=== PATIENT | male | born 1955 | race Caucasian/White ===

== ENCOUNTER → 2016-12-14 | Outpatient (CLI) | payer OTHER ==
[2016-12-14 09:43] LABS: Basophils # (A) 0.2 k/uL (0-0.2); Basophils % (A) 2 %; CH 31.4; CHCM 32.1; Eosinophils # (A) 0.2 k/uL (0-0.7); Eosinophils % (A) 2 %; HCT 45.9 % (39.0-53.0); HDW 2.27; HGB 14.1 gm/dL (13.0-17.5); Luc # (Auto) 0.11; Luc % (Auto) 1; Lymphocytes # (A) 2.1 k/uL (1.0-4.8); Lymphocytes % (A) 25 %; MCH 30.1 pg (25.0-35.0); MCHC 30.6 g/dL (31.0-37.0); MCV 98.3 fL (80.0-100.0); Mean Platelet Volume 8.5; Monocytes # (A) 0.5 k/uL (0-1.0); Monocytes % (A) 6 %; Neutrophils # (A) 5.4 k/uL (1.3-7.7); Neutrophils % (A) 64 %; RBC 4.67 m/uL (4.30-5.90); RDW 13.1 % (11.5-15.5); WBC 8.4 k/uL (3.8-10.6); WBC (Perox) 8.27
[2016-12-14 09:53] LABS: Bilirubin, Delta 0.3 mg/dL (0.0-0.2); Total Bilirubin 0.6 mg/dL (0.2-1.3); Total Protein 7.7 g/dL (6.3-8.2)
[2016-12-15 16:54] LABS: Hepatits C Virus RNA, Quant <12 IU/mL (<12); LOG HCV IU/mL <1.08 (<1.08)
== END | disposition home or self-care (01) ==
LOC: LABWHC1 09:09
PROVIDERS: ATTEND Physician Assistant
DX: B18.2 Chronic viral hepatitis C (principal)
CPT/HCPCS: 36415; 80076; 85025; 87522

== ENCOUNTER → 2017-01-02 | Outpatient (CLI) | payer OTHER ==
--- NOTE | 2017-01-02 08:45 | US ---
EXAMINATION TYPE: US liver DATE OF EXAM: 01/02/2017 8:30 AM COMPARISON: NONE CLINICAL HISTORY: B18.2 Viral HEP C. EXAM MEASUREMENTS: Liver Length: 15.3 cm Gallbladder Wall: 0.2 cm CBD: 0.4 cm Right Kidney: 10.0 x 4.6 x 5.1 cm Patient had extensive midline bowel gas Pancreas: Obscured by bowel gas Liver: somewhat heterogenousl Gallbladder: wnl Evidence for sonographic Seals's sign: CBD: wnl Right Kidney: wnl IMPRESSION: 1. Hepatic steatosis versus hepatocellular.
== END | disposition home or self-care (01) ==
LOC: RADUSWWP 08:01
PROVIDERS: ATTEND Internal Medicine Gastroenterology
DX: B18.2 Chronic viral hepatitis C (principal)
CPT/HCPCS: 76705

== ENCOUNTER → 2017-03-31 | Outpatient (CLI) | payer OTHER ==
[2017-03-31 09:31] LABS: Basophils % (A) 0 %; CH 30.9; CHCM 31.8; Eosinophils # (A) 0.2 k/uL (0-0.7); Eosinophils % (A) 3 %; HDW 2.16; Luc % (Auto) 1; Lymphocytes # (A) 2.3 k/uL (1.0-4.8); Lymphocytes % (A) 31 %; MCH 31.8 pg (25.0-35.0); MCHC 32.6 g/dL (31.0-37.0); MCV 97.8 fL (80.0-100.0); Mean Platelet Volume 8.7; Monocytes # (A) 0.4 k/uL (0-1.0); Monocytes % (A) 5 %; Neutrophils # (A) 4.5 k/uL (1.3-7.7); Neutrophils % (A) 60 %; WBC 7.5 k/uL (3.8-10.6); WBC (Perox) 7.52
[2017-03-31 09:48] LABS: Bilirubin, Delta 0.3 mg/dL (0.0-0.2); Total Bilirubin 0.5 mg/dL (0.2-1.3); Total Protein 7.4 g/dL (6.3-8.2)
[2017-04-03 08:27] LABS: Hepatits C Virus RNA, Quant <12 IU/mL (<12); LOG HCV IU/mL <1.08 (<1.08)
== END | disposition home or self-care (01) ==
LOC: LABWHC1 09:05
PROVIDERS: ATTEND Physician Assistant
DX: B18.2 Chronic viral hepatitis C (principal)
CPT/HCPCS: 36415; 80076; 82105; 85025; 87522

== ENCOUNTER → 2017-11-28 | Outpatient (CLI) | payer OTHER ==
--- NOTE | 2017-11-28 13:12 | US ---
EXAMINATION TYPE: US kidneys/renal and bladder DATE OF EXAM: 11/28/2017 COMPARISON: CT and Abdomen limited CLINICAL HISTORY: Dysuria R30.0. Recent UTI, bilateral renal stones EXAM MEASUREMENTS: Right Kidney: 10.2 x 6.0 x 4.2 cm Left Kidney: 9.8 x 7.9 x 4.5 cm Post Void Residual Volume: 4.4 mL Right Kidney: no hydronephrosis; mid lateral shadowing, hyperechoic focus = 0.5 x 0.5 x 0.3cm Left Kidney: no hydronephrosis, mid pole shadowing, hyperechoic focus = 0.5 x 0.3 x 0.1cm Bladder: wnl Bilateral Jets seen: Yes Normal Post Void Residual: Yes Urinary bladder is anechoic and unremarkable. IMPRESSION: 1. Solitary bilateral renal calculi both measuring up to 5 mm. These are nonobstructing with no evide nce of hydronephrosis. 2. No evidence of abnormal post void residual within the urinary bladder.
== END | disposition home or self-care (01) ==
LOC: RADUSWWP 12:13
PROVIDERS: ATTEND Internal Medicine
DX: N20.0 Calculus of kidney (principal)
CPT/HCPCS: 76770

== ENCOUNTER → 2018-03-26 | Outpatient (CLI) | payer OTHER ==
[2018-03-26 08:58] LABS: Blood Urea Nitrogen 15 mg/dL (9-20)
--- NOTE | 2018-03-26 09:36 | CT ---
EXAMINATION TYPE: CT abdomen w con DATE OF EXAM: 03/26/2018 COMPARISON: NONE HISTORY: RUQ pain CT DLP: 1085 mGycm Automated exposure control for dose reduction was used. TECHNIQUE: Helical acquisition of images was performed from the lung bases through the top of iliac crest to include entire abdomen. CONTRAST: Performed with Oral Contrast and with IV Contrast, patient injected with 100 mL of Isovue 300. FINDINGS: LUNG BASES: HEART: Enlarged there subsegmental atelectasis at the lung bases. LIVER/GB: No evidence of hepatic mass. Gallbladder is mildly prominent in size but stable and there i s mild central biliary dilation PANCREAS: No significant abnormality is seen. SPLEEN: No significant abnormality is seen. ADRENALS: Tiny right adrenal nodule measuring less than a centimeter is too small to characterize and stable. KIDNEYS: nonobstructing 3 mm right renal calculus and 2 mm left renal calculus. There is a 5 mm hypodensity left kidney too small to characterize. BOWEL: Nonspecific bowel gas pattern with extensive retained fecal debris. LYMPH NODES: Shotty adenopathy in the left periaortic region. This appears retrospectively stable. OSSEOUS STRUCTURES: Hypertrophic and degenerative change spine. FREE AIR: No free air is visualized. OTHER: Atherosclerotic change aorta. IMPRESSION: 1. Mild central biliary dilation and mild prominence the gallbladder which appears to be stable. Extr ahepatic common bile duct measures the upper limits of normal. 2. Stable cardiomegaly 3. Stable bilateral nonobstructing renal calculi. 4. Stable hypodense lesion left kidney too small to characterize.
== END | disposition home or self-care (01) ==
LOC: RADCTMAIN 08:29
PROVIDERS: ATTEND Internal Medicine
DX: N20.0 Calculus of kidney (principal); N28.9 Disorder of kidney and ureter, unspecified; K83.8 Other specified diseases of biliary tract
CPT/HCPCS: 82565; 84520; 74160; 36415; Q9967

== ENCOUNTER 2020-10-02 23:59 | Observation (INO) | payer OTHER ==
[2020-10-03 00:34] LABS: Amorphous Sediment,Urine Few /hpf; Appearance,Urine Turbid (Clear); Bilirubin,Urine Negative (Negative); Blood,Urine Negative (Negative); Color,Urine Yellow; Glucose,Urine (UA) Negative (Negative); Ketones,Urine 1+ (Negative); Leukocyte Esterase,Urine Negative (Negative); Nitrite,Urine Negative (Negative); Protein,Urine Trace (Negative); RBC,Urine 8 /hpf (0-5); Specific Gravity,Urine 1.025 (1.001-1.035); Urobilinogen,Urine <2.0 mg/dL (<2.0)
[2020-10-03 00:58] LABS: Basophils # (A) 0.1 k/uL (0-0.2); Basophils % (A) 1 %; Eosinophils # (A) 0.1 k/uL (0-0.7); Eosinophils % (A) 1 %; HCT 42.4 % (39.0-53.0); HGB 13.9 gm/dL (13.0-17.5); Lymphocytes # (A) 1.3 k/uL (1.0-4.8); Lymphocytes % (A) 14 %; MCH 31.4 pg (25.0-35.0); MCHC 32.7 g/dL (31.0-37.0); MCV 96.1 fL (80.0-100.0); Mean Platelet Volume 8.7; Monocytes # (A) 0.5 k/uL (0-1.0); Monocytes % (A) 5 %; Neutrophils # (A) 7.7 k/uL (1.3-7.7); Neutrophils % (A) 79 %; Platelet Count 183 k/uL (150-450); RBC 4.41 m/uL (4.30-5.90); RDW 12.7 % (11.5-15.5); WBC 9.9 k/uL (3.8-10.6)
[2020-10-03 01:05] LABS: African American GFR (CKD) >90 (>60 ml/min/1.73 sqM); Albumin 4.5 g/dL (3.5-5.0); Amylase 78 U/L (30-110); Anion Gap 6 mmol/L; Carbon Dioxide 27 mmol/L (22-30); Chloride 107 mmol/L (98-107); Glucose 90 mg/dL (74-99); Lipase 150 U/L (23-300); Non-African American GFR(CKD) >90 (>60 ml/min/1.73 sqM); Sodium 140 mmol/L (137-145); Total Bilirubin 1.2 mg/dL (0.2-1.3); Total Protein 7.5 g/dL (6.3-8.2)
[2020-10-03 01:17] LABS: ALT 25 U/L (4-49); AST 56 U/L (17-59); Alkaline Phosphatase 41 U/L (38-126); Blood Urea Nitrogen 23 mg/dL (9-20); Potassium 4.7 mmol/L (3.5-5.1)
[2020-10-03] MEDS ORDERED: HYDROmorphone 1 MG/ML 1 ML SYRINGE IVP STA ×2 (01:19→01:49)
--- NOTE | 2020-10-03 01:42 | US ---
EXAM: US Scrotum CLINICAL HISTORY: Left scrotal pain. TECHNIQUE: Real-time ultrasound of the scrotum with color Doppler and image documentation. COMPARISON: No previous studies. FINDINGS: Right testicle: Right testicle measures 3.4 x 2.1 x 2.8 cm. Diffuse heterogeneity of the testicular echogenicity of uncertain etiology. Flow is demonstrated to both testicles. Left testicle: The left testicle appears small in size relative to the right testicle. Diminished flow to the left testicle is noted which requires clinical correlation. Epididymides: Right epididymis measures 0.6 x 1.3 x 1.2 cm. Left epididymis measures 0.9 x 1 x 1.8 cm. Ovoid echogenic structure cephalad to the right epididymis, possibly presenting a small inguinal hernia. The finding is equivocal. Scrotum: Small bilateral simple hydroceles are noted. Other findings: Left measures 2.3 x 1.5 x 1.9 cm. IMPRESSION: 1. Diffuse heterogeneity of both testicles. 2. Left testicle is small for in size relative the right testicle. 3. Diminished flow to the left testicle is noted relative to the right testicle. 4. Clinical correlation is highly advised to 5. Possible small right inguinal hernia. 6. Bilateral hydroceles. <MYCVCSECTION> Communications: 10/03/20 02:01 Call Doctor Regarding Above results, called Dr. Campbell on 10/03 02:01 (-05:00)
--- NOTE | 2020-10-03 01:44 | ED ---
General Adult HPI - General Chief complaint: Urogenital Stated complaint: L testicle pain Time Seen by Provider: 10/03/20 00:08 Source: patient Mode of arrival: ambulatory - History of Present Illness Initial comments: this patient is a 65-year-old man who presents to be evaluated for left testicular pain. The patient states that he had gone for a walk earlier and after he came back he was seatedand noticed to the left testicular pain. He states it initially was reminding him of pain he had associated with varicocele [place] The patient states that daily intensified to call EMS due to the pain. The patient did take his me thadone, but did not have much relief. The addition, patient states she has been having some left hip pains as well as the testicular pains intermittently, for the past number days up to a week. Onset/Timin -: days(s) Location: genitals, left, lower extremity Radiation: non-radiation Quality: aching, sharp Consistency: constant Improves with: none Worsens with: none Associated Symptoms: nausea/vomiting Treatments Prior to Arrival: other (methadone) - Related Data Home Medications Medication Instructions Recorded Confirmed Methadone [Dolophine] 30 mg PO DAILY 10/03/20 10/03/20 Allergies Allergy/AdvReac Type Severity Reaction Status Date / Time adhesive Allergy Rash/Hives Verified 10/03/20 08:08 Review of Systems ROS Statement: Those systems with pertinent positive or pertinent negative responses have been documented in the HPI. ROS Other: All systems not noted in ROS Statement are negative. Past Medical History Past Medical History: COPD, GERD/Reflux, Liver Disease, Musculoskeletal Disorder, Osteoarthritis (OA) Additional Past Medical History / Comment(s): ARTHRITIS LT HIP; HERNIATED DISC IN LOWER BACK. HEPATITIS C 1994, WAS TREATED; HEPATITIS B 1969. HX PAIN RX -ON & OFF, METHADONE FOR [address] SCAN SHOWED ENLARGED HEART. SPIT UP BLOOD X1, BLOOD IN STOOL X1. History of Any Multi-Drug Resistant Organisms: None Reported Past Surgical History: Orthopedic Surgery Additional Past Surgical History / Comment(s): ORIF FX LEFT HIP -HAS STEEL PLATE & PINS. LT EYE [id number] [place]. LT TESTICULAR/VARICOSCELE SURGERY 1981. COLONOSCOPY. Past Anesthesia/Blood Transfusion Reactions: Motion Sickness Additional Past Anesthesia/Blood Transfusion Reaction / Comment(s): CAN'T DO A MUSEMENT RIDES THAT SWIRL Past Psychological History: ADD/ADHD Smoking Status: Former smoker Past Alcohol Use History: None Reported Past Drug Use History: Marijuana, Opiates, Prescription Drug Abuse - Past Family History Mother Family Medical History: Cancer Additional Family Medical History / Comment(s): STOMACH CA- @ AGE 46 Father Family Medical History: Myocardial Infarction ([place]) Additional Family Medical History / Comment(s): OF OR @ AGE 73 Course Vital Signs 10/03/20 10/03/20 10/03/20 00:02 03:22 04:35 Temperature 98.3 F 98.1 F Pulse Rate 88 90 89 Respiratory 18 18 18 Rate Blood Pressure 138/106 138/91 137/87 O2 Sat by Pulse 99 96 98 Oximetry Medical Decision Making - Lab Data Result diagrams: 10/03/20 00:50 10/03/20 00:50 Lab Results 10/03/20 10/03/20 10/03/20 Range/Units 00:16 00:50 00:50 WBC 9.9 (3.8-10.6) k/uL RBC 4.41 (4.30-5.90) m/uL Hgb 13.9 (13.0-17.5) gm/dL Hct 42.4 (39.0-53.0) % MCV 96.1 (80.0-100.0) fL MCH 31.4 (25.0-35.0) pg MCHC 32.7 (31.0-37.0) g/dL RDW 12.7 (11.5-15.5) % Plt Count 183 (150-450) k/uL Neutrophils % 79 % Lymphocytes % 14 % Monocytes % 5 % Eosinophils % 1 % Basophils % 1 % Neutrophils # 7.7 (1.3-7.7) k/uL Lymphocytes # 1.3 (1.0-4.8) k/uL Monocytes # 0.5 (0-1.0) k/uL Eosinophils # 0.1 (0-0.7) k/uL Basophils # 0.1 (0-0.2) k/uL Sodium 140 (137-145) mmol/L Potassium 4.7 (3.5-5.1) mmol/L Chloride 107 (98-107) mmol/L Carbon Dioxide 27 (22-30) mmol/L Anion Gap 6 mmol/L BUN 23 H (9-20) mg/dL Creatinine 0.81 (0.66-1.25) mg/dL Est GFR (CKD-EPI)AfAm >90 (>60 ml/min/1.73 sqM) Est GFR (CKD-EPI)NonAf >90 (>60 ml/min/1.73 sqM) Glucose 90 (74-99) mg/dL Calcium 9.0 (8.4-10.2) mg/dL Total Bilirubin 1.2 (0.2-1.3) mg/dL AST 56 (17-59) U/L ALT 25 (4-49) U/L Alkaline Phosphatase 41 (38-126) U/L Total Protein 7.5 (6.3-8.2) g/dL Albumin 4.5 (3.5-5.0) g/dL Amylase 78 (30-110) U/L Lipase 150 (23-300) U/L Urine Color Yellow Urine Appearance Turbid (Clear) Urine pH 8.0 (5.0-8.0) Ur Specific [place] 1.025 (1.001-1.035) Urine Protein Trace H (Negative) Urine Glucose (UA) Negative (Negative) Urine Ketones 1+ H (Negative) Urine Blood Negative (Negative) Urine Nitrite Negative (Negative) Urine Bilirubin Negative (Negative) Urine Urobilinogen <2.0 (<2.0) mg/dL Ur Leukocyte Esterase Negative (Negative) Urine RBC 8 H (0-5) /hpf Amorphous Sediment Few H (None) /hpf Disposition Clinical Impression: Left testicular pain, Left hip pain, Intractable pain Disposition: ADMITTED IP TO THIS HOSP Condition: Fair
--- NOTE | 2020-10-03 01:58 | CT ---
EXAM: CT Abdomen and Pelvis Without Intravenous Contrast CLINICAL HISTORY: ITS.REASON CT Reason: Left groin/hip pain TECHNIQUE: Axial computed tomography images of the abdomen and pelvis without intravenous contrast. CTDI is 9.27 mGy and DLP is 550.9 mGy-cm. This CT exam was performed using one or more of the following dose reduction techniques: automated exposure control, adjustment of the mA and/or kV according to patient size, and/or use of iterative reconstruction technique. COMPARISON: 03/26/2018. FINDINGS: Lung bases: Mild COPD. Minimal subsegmental atelectasis posteriorly at the lung bases. Pleural space: No pleural effusions. Heart: Heart is top normal in size. ABDOMEN: Liver: Diffuse fatty infiltration of the liver is noted. The liver and the spleen are normal in contour. Gallbladder and bile ducts: The gallbladder is in a contracted state. Pancreas: The head, body, tail of the pancreas, and the gallbladder are unremarkable. No ductal dilation. Spleen: See above. Adrenals: The right adrenal gland is unremarkable The left adrenal gland is unremarkable. Kidneys and ureters: 0.4 cm nonobstructing calculus mid pole region of the right kidney. 0.2 cm nonobstructing calculus lower pole region of the right kidney. 0.3 cm nonobstructing calculus mid to lower pole region of the left kidney. Stomach and bowel: Moderate quantity of stool throughout the colon. No evidence of bowel obstruction. The appendix is seen on coronal image 53 and is unremarkable. Diverticulosis without diverticulitis. PELVIS: Appendix: See above. Bladder: The bladder is underdistended. No stones. Reproductive: Prostate gland is unremarkable. The left testicle appears to be within the left inguinal canal and is not completely distended. ABDOMEN and PELVIS: Intraperitoneal space: Unremarkable. No free air. No significant fluid collection. Bones/joints: Orthopedic hardware is noted in place within the proximal left femur. Moderate to severe degenerative disc disease of the thoracolumbar spine. Grade 1 anterolisthesis of L4 upon L5 vertebral body. Multilevel Schmorl's nodes. The sacrum and coccyx are unremarkable. No acute fracture. No dislocation. Soft tissues: Ischiorectal fat is clean. Vasculature: Unremarkable. No abdominal aortic aneurysm. Lymph nodes: No retroperitoneal lymphadenopathy. No pelvic or inguinal lymphadenopathy. IMPRESSION: 1. Diffuse fatty infiltration of the liver is noted. 2. Gallbladder is unremarkable. 3. Nonobstructing bilateral renal calculi. 4. Moderate quantity of stool throughout the colon without bowel obstruction. 5. The appendix is unremarkable. 6. The left testicle is within left inguinal canal and is undescended completely. 7. Diverticulosis without diverticulitis. <MYCVCSECTION> Communications: 10/03/20 02:01 Call Doctor Regarding Above results, called Dr. Campbell on 10/03 02:01 (-05:00)
[2020-10-03] MEDS ORDERED: LIDOCAINE 2% INJ 20 MG/ML (20 ML MDV) SQ STA (02:53)
[2020-10-03] MEDS ORDERED: BUPIVACAINE (PF) 0.5% 30 ML VIAL SQ STA (02:54)
[2020-10-03] MEDS ORDERED: DIAZEPAM 5 MG/ML 2 ML INJ IVP STA (03:31)
[2020-10-03] MEDS ORDERED: methylPREDNISolone SOD SUCCI 125 MG/2 ML VIAL IV STA (03:32)
[2020-10-03] MEDS ORDERED: HYDROcodone/APAP 5-325MG 1 EACH TAB PO PRN (03:34)
[2020-10-03] MEDS ORDERED: DOCUSATE 100 MG CAP PO PRN (03:34)
[2020-10-03] MEDS ORDERED: ONDANSETRON 4 MG/2 ML VIAL IVP PRN (03:34)
[2020-10-03] MEDS ORDERED: ACETAMINOPHEN TAB 325 MG TAB PO PRN (03:34)
[2020-10-03] MEDS ORDERED: NALOXONE 0.4 MG/ML 1 ML VIAL IV PRN (03:34)
--- NOTE | 2020-10-03 03:43 | P.GSCN ---
History of Present Illness Consult date: 10/03/20 Reason for Consult: Left testicular pain History of present illness: The patient is a 65-year-old male with a history of left testicular and left hip and thigh pain which dates back over one week. He says that he took a walk yesterday afternoon following which he developed increased pain in the left testicle and left leg. The pain was not associated with nausea or vomiting. He says the pain in his leg is in the anterior thigh and inner thigh as well as the lateral thigh. He denies any muscle weakness. He denies any recent injury to the hip. He did have a right hip replacement approximately 30 years ago. The patient was evaluated in the emergency room and the source of his pain was not clear. A scrotal ultrasound was obtained which appeared to show diminished blood flow to the left testicle. There was no left testicular enlargement and in fact the left testicle was slightly smaller than the right. Patient has a history of left varicocele repair at the age of 26 and says that the left testicle has remained slightly smaller ever since then. He has no history of epididymitis. I was asked to see the patient due to concern in regard to possible spermatic cord torsion. Review of Systems - Constitutional Denies chills, Denies fever - Cardiovascular Denies shortness of breath - Respiratory Denies pain on inspiration - Genitourinary Reports as per HPI, Denies flank pain, Denies hematuria, Denies urinary frequency Past Medical History Past Medical History: COPD, GERD/Reflux, Liver Disease, Musculoskeletal Disorder, Osteoarthritis (OA) Additional Past Medical History / Comment(s): ARTHRITIS LT HIP; HERNIATED DISC IN LOWER BACK. HEPATITIS C 1994, WAS TREATED; HEPATITIS B 1969. HX PAIN RX -ON & OFF, METHADONE FOR [address] SCAN SHOWED ENLARGED HEART. SPIT UP BLOOD X1, BLOOD IN STOOL X1. History of Any Multi-Drug Resistant Organisms: None Reported Past Surgical History: Orthopedic Surgery Additional Past Surgical History / Comment(s): ORIF FX LEFT HIP -HAS STEEL PLATE & PINS. [id number]. LT TESTICULAR/VARICOSCELE SURGERY 1981. COLONOSCOPY. Past Anesthesia/Blood Transfusion Reactions: Motion Sickness Additional Past Anesthesia/Blood Transfusion Reaction / Comm: CAN'T DO AMUSEMENT RIDES THAT SWIRL Past Psychological History: ADD/ADHD Smoking Status: Former smoker Past Alcohol Use History: None Reported Past Drug Use History: Marijuana, Opiates, Prescription Drug Abuse - Past Family History Mother Family Medical History: Cancer Additional Family Medical History / Comment(s): STOMACH CA- @ AGE 46 Father Family Medical History: Myocardial Infarction ([place]) Additional Family Medical History / Comment(s): OF [place] @ AGE 73 Medications and Allergies Home Medications Medication Instructions Recorded Confirmed Type Albuterol Inhaler (Mhu) [Ventolin 1 - 2 puff INHALATION RT-Q6H PRN 04/09/15 04/19/18 History Inhaler] Loratadine [Claritin] 10 mg PO HS PRN 03/17/16 04/19/18 History Methadone HCl [Methadone Intensol] 90 ml PO DAILY 04/18/16 04/19/18 History Aspirin [Children's Aspirin] 81 mg PO DAILY 04/19/18 04/19/18 History Naproxen Sodium [Aleve] 220 mg PO BID PRN 04/19/18 04/19/18 History Omeprazole [PriLOSEC] 20 mg PO AC-BRKFST 04/19/18 04/19/18 History Allergies Allergy/AdvReac Type Severity Reaction Status Date / Time adhesive Allergy Rash/Hives Verified 10/03/20 00:05 Surgical - Exam Vital Signs Temp Pulse Resp BP Pulse Ox 98.3 F 88 18 138/106 99 10/03/20 00:02 10/03/20 00:02 10/03/20 00:02 10/03/20 00:02 10/03/20 00:02 - General well developed, well nourished, moderate distress - ENT no hearing loss - Neck no masses, no lymphadectomy - Respiratory normal respiratory effort - Abdomen Abdomen: non tender, no masses - Genitourinary normal penis with no external lesions, other (Right testicle is of normal size and is normal to palpation. Left testicle is slightly smaller than the Right testicle. It is soft And there are no areas of focal induration. Cremasteric reflexes ar) Results - Labs 10/03/20 00:50 10/03/20 00:50 Abnormal Lab Results - Last 24 Hours (Table) 10/03/20 10/03/20 Range/Units 00:16 00:50 BUN 23 H (9-20) mg/dL Urine Protein Trace H (Negative) Urine Ketones 1+ H (Negative) Urine RBC 8 H (0-5) /hpf Amorphous Sediment Few H (None) /hpf Diabetes panel 10/03/20 Range/Units 00:50 Sodium 140 (137-145) mmol/L Potassium 4.7 (3.5-5.1) mmol/L Chloride 107 (98-107) mmol/L Carbon Dioxide 27 (22-30) mmol/L BUN 23 H (9-20) mg/dL Creatinine 0.81 (0.66-1.25) mg/dL Glucose 90 (74-99) mg/dL Calcium 9.0 (8.4-10.2) mg/dL AST 56 (17-59) U/L ALT 25 (4-49) U/L Alkaline Phosphatase 41 (38-126) U/L Total Protein 7.5 (6.3-8.2) g/dL Albumin 4.5 (3.5-5.0) g/dL Calcium panel 10/03/20 Range/Units 00:50 Calcium 9.0 (8.4-10.2) mg/dL Albumin 4.5 (3.5-5.0) g/dL Pituitary panel 10/03/20 Range/Units 00:50 Sodium 140 (137-145) mmol/L Potassium 4.7 (3.5-5.1) mmol/L Chloride 107 (98-107) mmol/L Carbon Dioxide 27 (22-30) mmol/L BUN 23 H (9-20) mg/dL Creatinine 0.81 (0.66-1.25) mg/dL Glucose 90 (74-99) mg/dL Calcium 9.0 (8.4-10.2) mg/dL Adrenal panel 10/03/20 Range/Units 00:50 Sodium 140 (137-145) mmol/L Potassium 4.7 (3.5-5.1) mmol/L Chloride 107 (98-107) mmol/L Carbon Dioxide 27 (22-30) mmol/L BUN 23 H (9-20) mg/dL Creatinine 0.81 (0.66-1.25) mg/dL Glucose 90 (74-99) mg/dL Calcium 9.0 (8.4-10.2) mg/dL Total Bilirubin 1.2 (0.2-1.3) mg/dL AST 56 (17-59) U/L ALT 25 (4-49) U/L Alkaline Phosphatase 41 (38-126) U/L Total Protein 7.5 (6.3-8.2) g/dL Albumin 4.5 (3.5-5.0) g/dL - Imaging CT scan - abdomen: image reviewed (Nonobstructive bilateral renal calculi) Assessment and Plan (1) Left testicular pain Narrative/Plan: The source of the patient's left testicular pain is not clear. I personally reviewed the patient's scrotal ultrasound. There is some blood flow into the left testicle. I used an ultrasound at the bedside and was able to obtain a good blood flow through the left spermatic cord to the testicle. The left testicle is not enlarged on examination and on the ultrasound and there is a preserved left cremasteric reflex. These findings are not consistent with acute testicular torsion. The presence of left testicular pain and left hip and thigh pain could be from a neuropathy. The patient has had some lumbar disc disease in the past. I performed a left spermatic cord block using 1% lidocaine/0.25% bupivacaine and the patient says that his left testicular pain is improved although he still complains of pain in the hip and thigh. At least at this time I do not feel that surgical exploration of the scrotum is indicated. The patient may benefit from an evaluation to determine whether his hip and scrotal pain are related to lumbar disc disease. Current Visit: Yes Status: Acute Code(s): N50.812 - LEFT TESTICULAR PAIN SNOMED Code(s): 77245290545207760
[2020-10-03] MEDS: HYDROmorphone 1 MG/ML 1 ML SYRINGE IVP PRN ×5 (05:02→20:47)
[2020-10-03] MEDS: SODIUM CHLORIDE 0.9% 1,000 ML IV SCH (06:09)
[2020-10-03] MEDS: FAMOTIDINE 20 MG TAB PO SCH ×2 (08:16→20:47)
[2020-10-03] MEDS: KETOROLAC 15 MG/ML 1 ML VIAL IVP SCH ×3 (10:07→22:02)
[2020-10-03] MEDS: METHADONE 10 MG TAB PO SCH (10:34)
--- NOTE | 2020-10-03 10:40 | XR ---
EXAMINATION TYPE: XR Hip LT and AP Pelvis DATE OF EXAM: 10/03/2020 COMPARISON: NONE HISTORY: Pain in left hip TECHNIQUE: A single AP view of the pelvis is obtained. Two views of the left hip are obtained. FINDINGS: There is dynamic hip screw fixation of the left femur with old healed intertrochanteric fracture defo rmity. No evidence of hardware fracture or loosening. There is no acute fracture/dislocation evident in the pelvis. The sacroiliac joints appear symmetric and unremarkable. There is left hip superior joint space narrowing and mild degenerative change. Tw o views of left hip show no acute fracture or dislocation. No focal lytic or sclerotic lesion seen i n the proximal left femur. IMPRESSION: 1. No acute fracture or dislocation in the pelvis or left hip. 2. Postsurgical fixation of the left hip with no evidence of hardware failure. 3. Mild degenerative change of the left hip.
[2020-10-03] MEDS ORDERED: IPRATROPIUM-ALBUTEROL 3 ML NEB INHALATION PRN (11:11)
[2020-10-03] MEDS ORDERED: polyethylene glycoL 3350 17 GM POWD.PACK PO PRN (11:14)
--- NOTE | 2020-10-03 11:41 | P.CNOR ---
History of Present Illness - HPI Consult date: 10/03/20 History of present illness: This is a 65-year-old male who is admitted for testicular pain. Orthopedics is consulted due to left hip pain. Patient states that he has had severe pain in the left testicle, groin and thigh for one week. Patient states that he is unable to ambulate because he is in a lot of pain. Patient denies any injury. Patient denies any fever, chills, nausea, abdominal pain, numbness, weakness or tingling. Patient reports history of hip fracture 30 years ago. Patient has been evaluated by urology and they do not believe the pain is from acute testicular torsion. Review of Systems See HPI. Past Medical History Past Medical History: COPD, GERD/Reflux, Liver Disease, Musculoskeletal Disorder, Osteoarthritis (OA) Additional Past Medical History / Comment(s): ARTHRITIS LT HIP; HERNIATED DISC IN LOWER BACK. HEPATITIS C 1994, WAS TREATED; HEPATITIS B 1969. HX PAIN RX -ON & OFF, METHADONE FOR [address] SCAN SHOWED ENLARGED HEART. SPIT UP BLOOD X1, BLOOD IN STOOL X1. History of Any Multi-Drug Resistant Organisms: None Reported Past Surgical History: Orthopedic Surgery Additional Past Surgical History / Comment(s): ORIF FX LEFT HIP -HAS STEEL PLATE & PINS. LT EYE [id number] [place]. LT TESTICULAR/VARICOSCELE SURGERY 1981. COLONOSCOPY. Past Anesthesia/Blood Transfusion Reactions: Motion Sickness Additional Past Anesthesia/Blood Transfusion Reaction / Comm: CAN'T DO AMUSEMENT RIDES THAT SWIRL Past Psychological History: ADD/ADHD Smoking Status: Former smoker Past Alcohol Use History: None Reported Additional Past Alcohol Use History / Comment(s): SMOKER SINCE [id number], 3 -1 PPD. Past Drug Use History: Marijuana, Opiates, Prescription Drug Abuse Additional Drug Use History / Comment(s): CBD OIL DAILY - Past Family History Mother Family Medical History: Cancer Additional Family Medical History / Comment(s): STOMACH CA- @ AGE 46 Father Family Medical History: Myocardial Infarction ([place]) Additional Family Medical History / Comment(s): OF [place] @ AGE 73 Medications and Allergies Home Medications Medication Instructions Recorded Confirmed Type Methadone [Dolophine] 30 mg PO DAILY 10/03/20 10/03/20 History Allergies Allergy/AdvReac Type Severity Reaction Status Date / Time adhesive Allergy Rash/Hives Verified 10/03/20 08:08 Physical Examination On exam patient is sitting in a wheelchair in obvious pain. Patient is alert and oriented 3. Exam of the left hip is limited due to the patient's pain. There is pain with range of motion of the left hip. Calf is soft and nontender to palpation. Sensation intact. Patient has full range of motion of the left foot and ankle. Neurovascular status and circulatory status are intact. Results X-rays of the left hip and pelvis dated 10/03/2020 show previous ORIF of the left femur is in good position and alignment. Mild osteoarthritic changes of the left hip. No acute fracture or dislocation. - Labs Labs: Abnormal Lab Results - Last 24 Hours (Table) 10/03/20 10/03/20 Range/Units 00:16 00:50 BUN 23 H (9-20) mg/dL Urine Protein Trace H (Negative) Urine Ketones 1+ H (Negative) Urine RBC 8 H (0-5) /hpf Amorphous Sediment Few H (None) /hpf H & H 10/03/20 Range/Units 00:50 Hgb 13.9 (13.0-17.5) gm/dL Hct 42.4 (39.0-53.0) % Result Diagrams: 10/03/20 00:50 10/03/20 00:50 Assessment and Plan (1) Left hip pain Current Visit: Yes Status: Acute Code(s): M25.552 - PAIN IN LEFT HIP S NOMED Code(s): 35311082 (2) Left testicular pain Current Visit: Yes Status: Acute Code(s): N50.812 - LEFT TESTICULAR PAIN SNOMED Code(s): 02421486387070076 Plan: 1. X-rays of the left hip and pelvis are reviewed and are negative for any acute process or significant arthritis. 2. Will obtain x-rays of the lumbar spine. 3. No surgical intervention planned. Will continue to follow.
--- NOTE | 2020-10-03 14:15 | XR ---
EXAMINATION TYPE: XR lumbar spine 2 or 3V DATE OF EXAM: 10/03/2020 COMPARISON: 07/02/2013 HISTORY: Pain TECHNIQUE: FINDINGS: Lumbar vertebra have normal alignment. Posterior elements are intact. There is no compressi on fracture. Sacroiliac joints are intact. Disc spaces are fairly normal. IMPRESSION: Negative lumbar spine exam. No fracture. No change.
--- NOTE | 2020-10-03 15:34 | P.HPIM ---
History of Present Illness Patient is a 65-year-old male came in with the left testicular pain and left hip pain. Patient doesn't have any testicular swelling. Patient was a evaluated by urology and patient also had an ultrasound of the scrotum. Patient doesn't have any evidence of testicular torsion and doesn't appear to have any acute epididymitis. Patient was also evaluated by orthopedic surgery because of concerns of severe pain in the left hip area although imaging only showed mild degenerative changes patient was also comparing of severe back pain although imaging didn't show any significant abnormality. A she doesn't have signs or symptoms of sepsis no fever at this time. Patient today received local nerve block. Which she says helped. Patient had history of her prescription drug abuse in the past and patient is on methadone for that. Patient does have history of hepatitis C and hepatitis B as well. Review of Systems REVIEW OF SYSTEMS: CONSTITUTIONAL: No fever, no malaise, no fatigue. HEENT: No recent visual problems or hearing problems. Denied any sore throat. CARDIOVASCULAR: No chest pain, orthopnea, PND, no palpitations, no syncope. PULMONARY: No shortness of breath, no cough, no hemoptysis. GASTROINTESTINAL: No diarrhea, no nausea, no vomiting, no abdominal pain. NEUROLOGICAL: No headaches, no weakness, no numbness. HEMATOLOGICAL: Denies any bleeding or petechiae. GENITOURINARY: Denies any burning micturition, frequency, or urgency. MUSCULOSKELETAL/RHEUMATOLOGICAL: Denies any joint pain, swelling, or any muscle pain. ENDOCRINE: Denies any polyuria or polydipsia. The rest of the 14-point review of systems is negative. Past Medical History Past Medical History: COPD, GERD/Reflux, Liver Disease, Musculoskeletal Disorder, Osteoarthritis (OA) Additional Past Medical History / Comment(s): ARTHRITIS LT HIP; HERNIATED DISC IN LOWER BACK. HEPATITIS C 1994, WAS TREATED; HEPATITIS B 1969. HX PAIN RX -ON & OFF, METHADONE FOR [address] SCAN SHOWED ENLARGED HEART. SPIT UP BLOOD X1, BLOOD IN STOOL X1. History of Any Multi-Drug Resistant Organisms: None Reported Past Surgical History: Orthopedic Surgery Additional Past Surgical History / Comment(s): ORIF FX LEFT HIP -HAS STEEL PLATE & PINS. LT EYE [id number] [place]. LT TESTICULAR/VARICOSCELE SURGERY 1981. COLONOSCOPY. Past Anesthesia/Blood Transfusion Reactions: Motion Sickness Additional Past Anesthesia/Blood Transfusion Reaction / Comment(s): CAN'T DO AMUSEMENT RIDES THAT SWIRL Past Psychological History: ADD/ADHD Smoking Status: Former smoker Past Alcohol Use History: None Reported Additional Past Alcohol Use History / Comment(s): SMOKER SINCE [id number], 01/28 - PPD. Past Drug Use History: Marijuana, Opiates, Prescription Drug Abuse Additional Drug Use History / Comment(s): CBD OIL DAILY - Past Family History Mother Family Medical History: Cancer Additional Family Medical History / Comment(s): STOMACH CA- @ AGE 46 Father Family Medical History: Myocardial Infarction ([place]) Additional Family Medical History / Comment(s): OF [place] @ AGE 73 Medications and Allergies Home Medications Medication Instructions Recorded Confirmed Type Methadone [Dolophine] 30 mg PO DAILY 10/03/20 10/03/20 History Allergies Allergy/AdvReac Type Severity Reaction Status Date / Time adhesive Allergy Rash/Hives Verified 10/03/20 08:08 Physical Exam Vitals: Vital Signs Temp Pulse Pulse Resp BP BP Pulse Ox 10/03/20 05:40 97.9 F 70 14 131/75 98 10/03/20 04:35 98.1 F 89 18 137/87 98 10/03/20 03:22 90 18 138/91 96 10/03/20 00:02 98.3 F 88 18 138/106 99 Intake and Output 10/03/20 10/03/20 10/03/20 06:59 14:59 22:59 Other: # Voids 0 0 Weight 77.111 kg PHYSICAL EXAMINATION: GENERAL: The patient is alert and oriented x3, not in any acute distress. Well developed, well nourished. HEENT: Pupils are round and equally reacting to light. EOMI. No scleral icterus. No conjunctival pallor. Normocephalic, atraumatic. No pharyngeal erythema. No thyromegaly. CARDIOVASCULAR: S1 and S2 present. No murmurs, rubs, or gallops. PULMONARY: Chest is clear to auscultation, no wheezing or crackles. ABDOMEN: Soft, nontender, nondistended, normoactive bowel sounds. No palpable organomegaly. MUSCULOSKELETAL: No joint swelling or deformity. EXTREMITIES: No cyanosis, clubbing, or pedal edema. NEUROLOGICAL: Gross neurological examination did not reveal any focal deficits. SKIN: No rashes. Results CBC & Chem 7: 10/03/20 00:50 10/03/20 00:50 Labs: Abnormal Lab Results - Last 24 Hours (Table) 10/03/20 10/03/20 Range/Units 00:16 00:50 BUN 23 H (9-20) mg/dL Urine Protein Trace H (Negative) Urine Ketones 1+ H (Negative) Urine RBC 8 H (0-5) /hpf Amorphous Sediment Few H (None) /hpf Thrombosis Risk Factor Assmnt - Choose All That Apply Any of the Below Risk Factors Present?: No Assessment and Plan Plan: -Left testicular pain: Etiology of this pain is not clear and patient received of the left spermatic cord block. No evidence of testicular torsion. We'll discuss with the urology. As patient is complaining of for severe pain. - left hip pain also do surgery evaluated the patient, no significant osteoarthritis of the left hip. -Chronic back pain chronic no evidence of significant osteoarthritis that can explain his symptoms -History of hepatitis C and hepatitis B: Follow-up as an outpatient for this -History of prescription drug abuse -Nicotine abuse: Counseling was provided DVT prophylaxis with Lovenox
[2020-10-04] MEDS: SODIUM CHLORIDE 0.9% 1,000 ML IV SCH (04:29)
[2020-10-04] MEDS: KETOROLAC 15 MG/ML 1 ML VIAL IVP SCH ×4 (04:30→21:05)
[2020-10-04] MEDS: FAMOTIDINE 20 MG TAB PO SCH ×2 (08:54→21:05)
[2020-10-04] MEDS: METHADONE 10 MG TAB PO SCH (08:54)
[2020-10-04] MEDS: HYDROmorphone 1 MG/ML 1 ML SYRINGE IVP PRN ×3 (08:55→19:41)
[2020-10-04] MEDS: ENOXAPARIN 40 MG/0.4 ML SYRINGE SQ SCH (08:55)
--- NOTE | 2020-10-04 09:02 | P.PN ---
Subjective Progress Note Date: 10/04/20 This is a 65-year-old male who is admitted for left testicular pain. Patient states that his pain is much better controlled today and he has been able to walk around and bear weight on the left lower extremity. Patient states that his pain flareups are intermittent. Patient denies any new complaints today. Objective - Vital Signs Vital signs: Vital Signs Temp 97.7 F 10/04/20 08:07 Pulse 58 L 10/04/20 08:07 Resp 16 10/04/20 08:07 BP 134/69 10/04/20 08:07 Pulse Ox 96 10/04/20 08:07 Intake & Output 10/03/20 10/04/20 10/04/20 18:59 06:59 18:59 Intake Total 1130 Balance 1130 Intake: Intake, IV Titration 180 Amount Sodium Chloride 0.9% 1, 180 000 ml @ 20 mls/hr IV . Q24H MIGUEL Rx#:[id number] Oral 950 Other: # Voids 4 - Exam On exam patient is lying comfortably in bed in no acute distress. Patient is able to actively sit up in bed and walk around the room without any pain or difficulty. 5/5 strength to bilateral lower extremities. Patient has full active and passive range of motion of the left hip without any pain or difficulty. Negative straight leg raise bilaterally. Patient has full range of motion of bilateral feet and ankles without pain or difficulty. EHL intact bilaterally. Sensation intact. Neurovascular status and circulatory status are intact. - Labs CBC & Chem 7: 10/03/20 00:50 10/03/20 00:50 Assessment and Plan (1) Left hip pain Current Visit: Yes Status: Acute Code(s): M25.552 - PAIN IN LEFT HIP SNOMED Code(s): 83635019 (2) Left testicular pain Current Visit: Yes Status: Acute Code(s): N50.812 - LEFT TESTICULAR PAIN SNOMED Code(s): 70184213009067114 Plan: 1. X-rays of the left hip and pelvis are reviewed and are negative for any acute process or significant arthritis. X-rays of the lumbar spine reviewed and are negative for any acute process or significant arthritis. 2. No surgical intervention planned. Patient may follow up as an outpatient on an as-needed basis.
--- NOTE | 2020-10-04 15:15 | P.PN ---
Subjective 65-year-old male came in with the left testicular pain and left hip pain. Patient doesn't have any testicular swelling. Patient was a evaluated by urology and patient also had an ultrasound of the scrotum. Patient doesn't have any evidence of testicular torsion and doesn't appear to have any acute epididymitis. Patient was also evaluated by orthopedic surgery because of concerns of severe pain in the left hip area although imaging only showed mild degenerative changes patient was also comparing of severe back pain although imaging didn't show any significant abnormality. A she doesn't have signs or symptoms of sepsis no fever at this time. Patient today received local nerve block. Which she says helped. Patient had history of her prescription drug abuse in the past and patient is on methadone for that. Patient does have history of hepatitis C and hepatitis B as well. 10/04/2020 Patient testicular pain improved as per the patient but is complaining of pain behind the left Thigh. We will await the evaluation by pain management services most probably will be discharged tomorrow patient is asking something for neuropathic pain, patient will be given prescription for Lyrica tomorrow. Constitutional: Denied any fatigue denied any fever. Cardio vascular: denied any chest pain, palpitations Gastrointestinal denied any nausea vomiting Pulmonary: Denied any shortness of breath cough Neurologic denied any new focal deficits All inpatient medications were reviewed and appropriate changes in these medications as dictated in the interval history and assessment and plan. Objective - Vital Signs Vital signs: Vital Signs Temp 97.7 F 10/04/20 13:45 Pulse 65 10/04/20 13:45 Resp 18 10/04/20 13:45 BP 125/75 10/04/20 13:45 Pulse Ox 96 10/04/20 13:45 Intake & Output 10/03/20 10/04/20 10/04/20 18:59 06:59 18:59 Intake Total 1130 950 Balance 1130 950 Intake: Intake, IV Titration 180 Amount Sodium Chloride 0.9% 1, 180 000 ml @ 20 mls/hr IV . Q24H MIGUEL Rx#:[id number] Oral 950 950 Other: # Voids 4 3 - Exam PHYSICAL EXAMINATION: GENERAL: The patient is alert and oriented x3, not in any acute distress. Well developed, well nourished. HEENT: Pupils are round and equally reacting to light. EOMI. No scleral icterus. No conjunctival pallor. Normocephalic, atraumatic. No pharyngeal erythema. No thyromegaly. CARDIOVASCULAR: S1 and S2 present. No murmurs, rubs, or gallops. PULMONARY: Chest is clear to auscultation, no wheezing or crackles. ABDOMEN: Soft, nontender, nondistended, normoactive bowel sounds. No palpable organomegaly. MUSCULOSKELETAL: No joint swelling or deformity. EXTREMITIES: No cyanosis, clubbing, or pedal edema. NEUROLOGICAL: Gross neurological examination did not reveal any focal deficits. SKIN: No rashes. - Labs CBC & Chem 7: 10/03/20 00:50 10/03/20 00:50 Assessment and Plan Plan: -Left testicular pain: Etiology of this pain is not clear and patient received of the left spermatic cord block. No evidence of testicular torsion. discussed at length with urology. Testicular pain although resolved - left hip pain also do surgery evaluated the patient, no significant osteoarthritis of the left hip. doesn't have any evidence of any disc prolapse. Pain management will evaluate the patient tomorrow. -Chronic back pain chronic no evidence of significant osteoarthritis that can explain his symptoms -History of hepatitis C and hepatitis B: Follow-up as an outpatient for this -History of prescription drug abuse -Nicotine abuse: Counseling was provided DVT prophylaxis with Lovenox
[2020-10-05] MEDS: HYDROmorphone 1 MG/ML 1 ML SYRINGE IVP PRN ×2 (00:55→08:32)
[2020-10-05] MEDS: SODIUM CHLORIDE 0.9% 1,000 ML IV SCH (02:54)
[2020-10-05] MEDS: KETOROLAC 15 MG/ML 1 ML VIAL IVP SCH ×3 (05:55→15:58)
[2020-10-05 07:44] VITALS: RESP 18
[2020-10-05] MEDS: FAMOTIDINE 20 MG TAB PO SCH (08:31)
[2020-10-05] MEDS: ENOXAPARIN 40 MG/0.4 ML SYRINGE SQ SCH (08:31)
[2020-10-05] MEDS: METHADONE 10 MG TAB PO SCH (08:33)
[2020-10-05 11:12] VITALS: BP 132/78; PULSE 55; TEMP 97.5
--- NOTE | 2020-10-05 15:08 | P.PAINCN ---
History of Present Illness - Reason for Consult Consult date: 10/05/20 - History of Present Illness This is 65 years old male, was admitted to [facility] secondary to severe left sided low back pain with radiation to the testicular area, and left hip pain, he reported that these symptoms started more than a week ago, it's severe intense, radiated from the low back to the left groin and left testicle and left hip area, he was evaluated by urology service, and reported that there is no testicular torsion, and ultrasound of the testicle showed ,that there is good blood flow to the testicle, patient had history of surgical intervention of his left lower extremity , and he reported that he has continuous left hip pain, with some exacerbation from time to time, he denies an y initiating event for his new symptoms, patient had x-ray of the lumbar spine showed that he had lumbar degenerative disc disease, vision denies any motor or sensory deficit, he denies any change in the bowel movement or urination Past Medical History Past Medical History: COPD, GERD/Reflux, Liver Disease, Musculoskeletal Disorder, Osteoarthritis (OA) Additional Past Medical History / Comment(s): ARTHRITIS LT HIP; HERNIATED DISC I N LOWER BACK. HEPATITIS C 1994, WAS TREATED; HEPATITIS B 1969. HX PAIN RX -ON & OFF, METHADONE FOR [address] SCAN SHOWED ENLARGED HEART. SPIT UP BLOOD X1, BLOOD IN STOOL X1. History of Any Multi-Drug Resistant Organisms: None Reported Past Surgical History: Orthopedic Surgery Additional Past Surgical History / Comment(s): ORIF FX LEFT HIP -HAS STEEL PLATE & PINS. LT [id number]. LT TESTICULAR/VARICOSCELE SURGERY 1981. COLONOSCOPY. Past Anesthesia/Blood Transfusion Reactions: Motion Sickness Additional Past Anesthesia/Blood Transfusion Reaction / Comm: CAN'T DO AMUSEMENT RIDES THAT SWIRL Past Psychological History: ADD/ADHD Smoking Status: Former smoker Past Alcohol Use History: None Reported Past Drug Use History: Marijuana, Opiates, Prescription Drug Abuse - Past Family History Mother Family Medical History: Cancer Additional Family Medical History / Comment(s): STOMACH CA- @ AGE 46 Father Family Medical History: Myocardial Infarction ([place]) Additional Family Medical History / Comment(s): OF [place] @ AGE 73 Medications and Allergies Home Medications Medication Instructions Recorded Confirmed Type Methadone [Dolophine] 30 mg PO DAILY 10/03/20 10/03/20 History Pregabalin [Lyrica] 150 mg PO BID 7 Days #14 cap 10/04/20 Rx Allergies Allergy/AdvReac Type Severity Reaction Status Date / Time adhesive Allergy Rash/Hives Verified 10/03/20 08:08 Physical Exam Vitals: Vital Signs Temp Pulse Resp BP Pulse Ox 10/05/20 11:11 97.5 F L 55 L 18 132/78 94 L 10/05/20 07:43 97.4 F L 52 L 18 147/69 97 10/05/20 00:59 97.8 F 91 15 146/81 95 10/04/20 19:23 97.6 F 64 16 145/80 95 Intake and Output 10/04/20 10/05/20 10/05/20 22:59 06:59 14:59 Other: # Voids 4 Physical Examinations : -Constitutiona : Cooperative , not in acute distress . -HEENT : nech : supple , no Lymphadenopathy , normal thyroid size . : eyes : no ptosis , no icterus, no photophobia . - neurologic : Cranial nerve II to XII intact , no focal neurological deffecit . -psychatric : alert , oriented X 3 , appropriate affect , intact judgment and insight . -Lymphatic : no Lymphadenopathy . - musculoskeltal : Lumber spine moter stegnth lower extremities ,thigh and legs 5/5 Right side , 5/5 Left side deep tendon reflexes : normal Knee Jerk , normal ankle Jerk lumber facet Loading Test =positive Right , positive Left Range of motion of the lumbar spine Flexion 30 degrees, extension 10 degrees strait leg raising test = positive at 30 degree on the left side and is negative on the right side Fabere test= negative Right , and positive LT . tenderness over the Sacroiliac joint on the Left sides Tenderness over the lateral aspect of the left lower extremity at the location of the incision The incision over the left sternal aspect of the left femur healed appropriately, there is no discharge no erythema . Results CBC & Chem 7: 10/03/20 00:50 10/03/20 00:50 Comments: X-ray of the lumbar spine reviewed= minimal degenerative disc disease Assessment and Plan Plan: Assessment and plan=1-lumbar radiculopathy 2-painfull hardware. he could benefit from lumbar epidural steroid injection left paramedian approach, And this can be done as an outpatient once the patient discharged Time with Patient: Greater than 30 PQRS Measure Charge Sheet Measure #130: Documentation of Current Meds in Medical Chart: Patient's medications documented in chart PQRS Narrative: Smoking Status Former smoker Blood Pressure [Left Arm] 132/78 Blood Pressure 137/87 Pain Intensity [Left Hip] 6 Pain Intensity 5 Pain Scale Used Numeric (1 - 10) Scale Used Numeric (1 - 10) Home Medications: Ambulatory Orders Methadone [Dolophine] 30 mg PO DAILY 10/03/20 Pregabalin [Lyrica] 150 mg PO BID 7 Days #14 cap 10/04/20
--- NOTE | 2020-10-05 15:59 | P.DS ---
Providers Date of admission: 10/03/20 03:37 Attending physician: Kassie Weston Consults: 10/03/20 03:34 Consult Physician Stat Consulting Provider: Kassie Weston Consult Reason/Comments: L testicle pain Do you want consulting provider notified?: Already Contacted 10/03/20 03:36 Consult Physician Routine Consulting Provider: Patrick Ma Consult Reason/Comments: L hip pain Do you want consulting provider notified?: Yes Primary care physician: [facility] Course: 65-year-old male came in with the left testicular pain and left hip pain. Patient doesn't have any testicular swelling. Patient was a evaluated by urology and patient also had an ultrasound of the scrotum. Patient doesn't have any evidence of testicular torsion and doesn't appear to have any acute epididymitis. Patient was also evaluated by orthopedic surgery because of concerns of severe pain in the left hip area although imaging only showed mild degenerative changes patient was also comparing of severe back pain although imaging didn't show any significant abnormality. A she doesn't have signs or symptoms of sepsis no fever at this time. Patient today received local nerve block. Which she says helped. Patient had history of her prescription drug abuse in the past and patient is on methadone for that. Patient does have history of hepatitis C and hepatitis B as well. 10/04/2020 Patient testicular pain improved as per the patient but is complaining of pain behind the left Thigh. We will await the evaluation by pain management services most probably will be discharged tomorrow patient is asking something for neuropathic pain, patient will be given prescription for Lyrica tomorrow. 10/05/2020 Patient was evaluated by pain management services, they're recommending lumbar epidural injection for radiculopathy. Patient will be discharged today and patient will follow-up in pain management clinic tomorrow for this injection and patient was given prescription for Lyrica. Patient already has methadone which she will use for pain along with the [id number] Motrin or naproxen. Patient will follow-up with a week surgery as an outpatient as well. PHYSICAL EXAMINATION: GENERAL: The patient is alert and oriented x3, not in any acute distress. Well developed, well nourished. HEENT: Pupils are round and equally reacting to light. EOMI. No scleral icterus. No conjunctival pallor. Normocephalic, atraumatic. No pharyngeal erythema. No thyromegaly. CARDIOVASCULAR: S1 and S2 present. No murmurs, rubs, or gallops. PULMONARY: Chest is clear to auscultation, no wheezing or crackles. ABDOMEN: Soft, nontender, nondistended, normoactive bowel sounds. No palpable organomegaly. MUSCULOSKELETAL: No joint swelling or deformity. EXTREMITIES: No cyanosis, clubbing, or pedal edema. NEUROLOGICAL: Gross neurological examination did not reveal any focal deficits. SKIN: No rashes. Assessment and Plan Plan: -Left testicular pain: Etiology of this pain is not clear and patient received of the left spermatic cord block. No evidence of testicular torsion. Her pain improved and this pain is most probably secondary to lumbar radiculopathy - left hip pain also do surgery evaluated the patient, no significant osteoarthritis of the left hip. doesn't have any evidence of any disc prolapse. Pain management will evaluate the patient tomorrow. -Chronic back pain chronic no evidence of significant osteoarthritis but patient symptoms are consistent with lumbar any clarity and patient will undergo epidural steroid injection tomorrow. -History of hepatitis C and hepatitis B: Follow-up as an outpatient for this -History of prescription drug abuse -Nicotine abuse: Counseling was provided Patient Condition at Discharge: Fair Plan - Discharge Summary Discharge Rx Participant: Yes New Discharge Prescriptions: New Pregabalin [Lyrica] 150 mg PO BID 7 Days #14 cap No Action Methadone [Dolophine] 30 mg PO DAILY Discharge Medication List Methadone [Dolophine] 30 mg PO DAILY 10/03/20 [History] Pregabalin [Lyrica] 150 mg PO BID 7 Days #14 cap 10/04/20 [Rx] Follow up Appointment(s)/Referral(s): Joe Johnson MD [STAFF PHYSICIAN] - 1 Week (CALL OFFICE TO SCHEDULE FOLLOW UP APPOINTMENT FOR INJECTIONS) Suzie Bailey MD [Primary Care Provider] - 3 Days (OFFICE CLOSED FOR LUNCH, PLEASE CALL AND SCHEDULE FOLLOW UP APPOINTMENT) Patient Instructions/Handouts: Pain Management (DC), Hip Pain (ED) Discharge Disposition: HOME SELF-CARE
== END 2020-10-05 16:08 | disposition home or self-care (01) ==
LOC: EC 23:59 → 5NMEDONC 10-03 03:37
PROVIDERS: ADMIT Hospitalist; ATTEND Hospitalist
DX: G89.29 Other chronic pain (principal); M51.16 Intervertebral disc disorders with radiculopathy, lumbar region; N50.812 Left testicular pain; T84.84XA Pain due to internal orthopedic prosthetic devices, implants and grafts, initial encounter; M16.12 Unilateral primary osteoarthritis, left hip; J44.9 Chronic obstructive pulmonary disease, unspecified; K21.9 Gastro-esophageal reflux disease without esophagitis; M51.27 Other intervertebral disc displacement, lumbosacral region; I51.7 Cardiomegaly; F90.9 Attention-deficit hyperactivity disorder, unspecified type; F17.210 Nicotine dependence, cigarettes, uncomplicated; Z87.438 Personal history of other diseases of male genital organs; Z98.890 Other specified postprocedural states; Z91.09 Other allergy status, other than to drugs and biological substances; Z86.19 Personal history of other infectious and parasitic diseases; Z87.19 Personal history of other diseases of the digestive system; Z87.81 Personal history of (healed) traumatic fracture; Z87.898 Personal history of other specified conditions; Z71.6 Tobacco abuse counseling; Z79.899 Other long term (current) drug therapy; Z79.82 Long term (current) use of aspirin; Z79.1 Long term (current) use of non-steroidal anti-inflammatories (NSAID); Z80.0 Family history of malignant neoplasm of digestive organs; Z82.49 Family history of ischemic heart disease and other diseases of the circulatory system
CPT/HCPCS: 96376 ×4; 96372 ×2; 96375 ×2; 96374; 99285; 36415; 80053; 82150; 83690; 85025; 81001; 72100; 73502; 93975; 76870; 74176; G0378 ×3; J2001; J2930; J3360; J1650 ×2; S0109 ×3; J1170 ×3; J1885 ×3

== ENCOUNTER → 2020-10-21 | Outpatient (CLI) | payer OTHER ==
[2020-10-21 13:47] VITALS: BP 127/88; PULSE 71; RESP 18; TEMP 97.8
--- NOTE | 2020-10-21 16:45 | P.PN ---
Subjective Progress Note Date: 10/21/20 This is follow up visit for 65 years old male, was seen a few weeks ago as an inpatient at [facility] secondary to severe left sided low back pain with radiation to the testicular area, and left hip pain, he reported that these symptoms started more than a week ago, it's severe intense, radiated from the low back to the left groin and left testicle and left hip area, he was evaluated by urology service, and reported that there is no testicular torsion, and ultrasound of the testicle showed ,that there is good blood flow to the testicle, patient had history of surgical intervention of his left lower extremity , and he reported that he has continuous left hip pain, with some exacerbation from time to time, he denies any initiating event for his new symptoms, patient had x-ray of the lumbar spine showed that he had lumbar degenerative disc disease, he denies any motor or sensory deficit, he denies any change in the bowel movement or urination. Objective - Vital Signs Vital signs: Vital Signs Temp 97.8 F 10/21/20 13:45 Pulse 71 10/21/20 13:45 Resp 18 10/21/20 13:45 BP 127/88 10/21/20 13:45 Pulse Ox - Exam -Constitutiona : Cooperative , not in acute distress . -HEENT : nech : supple , no Lymphadenopathy , normal thyroid size . : eyes : no ptosis , no icterus, no photophobia . - neurologic : Cranial nerve II to XII intact , no focal neurological deffecit . -psychatric : alert , oriented X 3 , appropriate affect , intact judgment and insight . -Lymphatic : no Lymphadenopathy . - musculoskeltal : Lumber spine moter stegnth lower extremities ,thigh and legs 5/5 Right side , 5/5 Left side deep tendon reflexes : normal Knee Jerk , normal ankle Jerk lumber facet Loading Test =positive Right , positive Left Range of motion of the lumbar spine Flexion 30 degrees, extension 10 degrees strait leg raising test = positive at 30 degree on the left side and is negative on the right side Fabere test= negative Right , and positive LT . tenderness over the Sacroiliac joint on the Left sides Tenderness over the lateral aspect of the left lower extremity at the location of the incision The incision over the left sternal aspect of the left femur healed appropriately, there is no discharge no erythema . Assessment and Plan Plan: Assessment and plan=1-lumbar radiculopathy he could benefit from lumbar epidural steroid injection at L5-S1 left paramedian approach, We'll order MRI of the lumbar spine without contrast. He should continue his pain medication as prescribed by his primary care. - PQRS measures = - Patient's medications are documented in the chart. -Tobacco use is negative and counseling.Given. -Patient's has not received pneumococcal vaccine. -Advanced care planning discussed, patient not eligible. -Opiate contract signed. -Pain positive and follow-up visit/procedure is scheduled. -Patient's blood pressure measured [ 127/88 ] , and documented in the record ,and patient will follow up with the primary care. -Patient's weight was measured and body mass index within the normal limits and counseling was done. and patient instructed to follow-up with the primary care physician. -Patient was not identified as an unhealthy alcohol user Time with Patient: Less than 30
== END | disposition home or self-care (01) ==
LOC: PNWHC3 13:22
PROVIDERS: ATTEND Specialist
DX: M54.16 Radiculopathy, lumbar region (principal)
CPT/HCPCS: 99211

== ENCOUNTER → 2024-08-29 | Outpatient (CLI) | payer OTHER, MEDICARE | END | disposition home or self-care (01) | LOC: LABWHC1 14:13 | PROVIDERS: ATTEND Urology | DX: R39.12 Poor urinary stream (principal) | CPT/HCPCS: 36415; 84153 ==